=== PATIENT | female | born 1980 | race Caucasian/White ===

== ENCOUNTER 2017-04-09 18:57 | Emergency (ER) | payer MEDICAID ==
[2017-04-09 19:00] VITALS: BP 115/77
== END 2017-04-09 21:46 | disposition home or self-care (01) ==
LOC: ED 18:57
DX: J18.9 Pneumonia, unspecified organism (principal); J02.9 Acute pharyngitis, unspecified

== ENCOUNTER 2017-06-23 13:38 | Emergency (ER) | payer MEDICAID ==
[2017-06-23 14:03] VITALS: BP 100/73
== END 2017-06-23 16:17 | disposition home or self-care (01) ==
LOC: ED 13:38
DX: S46.911A Strain of unspecified muscle, fascia and tendon at shoulder and upper arm level, right arm, initial encounter (principal); G89.29 Other chronic pain; X58.XXXA Exposure to other specified factors, initial encounter; Y93.89 Activity, other specified; Y92.89 Other specified places as the place of occurrence of the external cause; Y99.8 Other external cause status
CPT/HCPCS: J1885

== ENCOUNTER 2017-07-27 11:28 | Emergency (ER) | payer MEDICAID ==
[2017-07-27 13:07] LABS: BASOPHIL % 0.1 % (0-2); PLATELET COUNT 258 x10^3mcL (130-400)
[2017-07-27 13:10] LABS: UA SPECIFIC GRAVITY 1.025 (1.005-1.035); microscopic required? YES; urine erythrocyte 3+ (NEGATIVE)
[2017-07-27 13:14] LABS: RED CELL DISTRIBUTION WIDTH 14.6 % (11.5-14.5)
[2017-07-27 13:29] LABS: CALCIUM 8.5 mg/dL (8.5-10.1); CARBON DIOXIDE 26.8 mmol/L (21-32); CHLORIDE SERUM 104 mmol/L (98-107); CREATININE SERUM 0.7 mg/dL (0.6-1.0); GFR1 > 60 mL/min; GLUCOSE SERUM 124 mg/dL (74-106); SODIUM SERUM 137 mmol/L (136-145)
[2017-07-27 13:35] LABS: ALBUMIN 3.1 g/dL (3.4-5.0); ALKALINE PHOSPHATASE 84 U/L (46-116); ALT/SGPT 28 U/L (14-59); AST/SGOT 12 U/L (15-37); BILIRUBIN TOTAL 0.4 mg/dL (0.20-1.00); LIPASE 130 IU/L (73-393); TOTAL PROTEIN, SERUM 7.4 g/dL (6.4-8.2)
[2017-07-27 13:45] VITALS: BP 128/74
== END 2017-07-27 13:45 | disposition home or self-care (01) ==
LOC: ED 11:28
PROVIDERS: Emergency Medicine
DX: N39.0 Urinary tract infection, site not specified (principal)
CPT/HCPCS: J1885; J2405

== ENCOUNTER 2019-05-08 15:14 | Emergency (ER) | payer MEDICAID ==
[~2019-05-08] VITALS: Ht 154.9 cm; Wt 64.0 kg
[2019-05-08 15:38] VITALS: Ht 154.9 cm; Wt 64.0 kg
[2019-05-08 16:42] VITALS: BP 114/74
== END 2019-05-08 16:42 | disposition home or self-care (01) ==
LOC: ED 15:14
DX: R30.0 Dysuria (principal); R31.9 Hematuria, unspecified

== ENCOUNTER 2019-06-09 21:37 | Emergency (ER) | payer MEDICAID ==
[~2019-06-09] VITALS: Ht 154.9 cm; Wt 62.6 kg
[2019-06-09 21:42] VITALS: Ht 154.9 cm; Wt 62.6 kg
[2019-06-09 23:34] VITALS: BP 120/60
== END 2019-06-09 23:34 | disposition home or self-care (01) ==
LOC: ED 21:37
DX: J06.9 Acute upper respiratory infection, unspecified (principal); E11.9 Type 2 diabetes mellitus without complications

== ENCOUNTER 2020-01-22 06:58 | Emergency (ER) | payer MEDICAID ==
[~2020-01-22] VITALS: Ht 157.5 cm; Wt 59.9 kg
[2020-01-22 07:11] VITALS: BP 113/72; Ht 157.5 cm; Wt 59.9 kg
== END 2020-01-22 08:17 | disposition home or self-care (01) ==
LOC: ED 06:58
DX: K02.9 Dental caries, unspecified (principal)
CPT/HCPCS: 82962; J0690

== ENCOUNTER 2020-06-30 09:49 | Emergency (ER) | payer MEDICAID ==
[~2020-06-30] VITALS: Ht 160 cm; Wt 62.1 kg
[2020-06-30 09:56] VITALS: Ht 160 cm; Wt 62.1 kg
[2020-06-30 10:38] VITALS: BP 103/68
== END 2020-06-30 10:38 | disposition home or self-care (01) ==
LOC: ED 09:49
DX: N39.0 Urinary tract infection, site not specified (principal)